=== PATIENT | female | born 1985 | race Caucasian/White ===

== ENCOUNTER 2024-01-27 19:32 | Outpatient (REF) | payer BC, SELFPAY | END 2024-01-27 19:33 | disposition home or self-care (01) | LOC: LAB 19:32 | PROVIDERS: Visit Provider Obstetrics & Gynecology | DX: Z01.419 Encounter for gynecological examination (general) (routine) without abnormal findings (principal) | CPT/HCPCS: 87624; 88175 ==

== ENCOUNTER 2025-01-30 19:06 | Outpatient (REF) | payer BC, SELFPAY ==
--- OUTSIDE RECORDS SUMMARY | 2025-01-30 11:20 | XMS_ITS | Encounter Summary ---
Author Organization [facility] Address [address] [place] [address] Care Team Providers Care Signaling Design Engineer Name Role Phone Jose Diaz MD Primary Care Provider [phone] Reason for Visit * Reason Comments Well Women Visit Encounter Details Date Type Department Care Team ([facility] Contact Info) Description 01/30/2025 11:20 AM EDT Office Visit [facility] OB [address] [place] [address] Nito Hackett, DO [address] [facility] [place] [address] Well woman exam with routine gynecological exam Social History Tobacco Use Types Packs/Day Years Used Date Smoking Tobacco: Never Smokeless Tobacco: Never Alcohol Use Standard Drinks/Week Comments Never 0 (1 standard drink = 0.6 oz pur e alcohol) Comments No Sex and Gender Information Value Date Recorded Sex Assigned at Not on file Legal Sex Female 11:47 PM EDT Gender Identity Not on file Sexual Orientation Not on file Travel History Travel Start Travel End [facility] 01/18/2025 01/22/2025 documented as of this encounter Last Filed Vital Signs Vital Sign Reading Time Taken Comments Blood Pressure 128/86 01/30/2025 11:59 AM EDT Pulse - - Temperature - - Respiratory Rate - - Oxygen Saturation - - Inhaled Oxygen Concentration - - Weight 88.5 kg (195 lb) 01/30/2025 11:59 AM EDT Height - - Body Mass Index 31.47 02/18/2023 8:54 AM EDT documented in this encounter Plan of Treatment Upcoming Encounters Date Type Department Care Team (Late st Contact Info) Description 02/04/2026 9:00 AM EDT Office Visit [facility] [address] [facility] [place] [address] Nito Hackett, [address] [place] [address] Scheduled Orders Name Type Priority Associated Diagnoses Orde r Schedule Pap Smear Pathology and Cytology Routine Well woman exam with routine gynecological exam Ordered: 01/30/2025 HPV DNA probe, amplified Microbiology Routine Well woman exam with routine gynecological exam Ordered: 01/30/2025 documented as of this encounter Visit Diagnoses Diagnosis Well woman exam with routine gynecological exam Routine gynecological examination documented in this encounter Care Teams Signaling Design Engineer Relationship Specialty Start Date End Date Jose Diaz MD PCP - General Family Medicine 12/21/22 documented as of this encounter
--- OUTSIDE RECORDS SUMMARY | 2025-01-30 19:09 | XMS_ITS | Encounter Summary ---
Author Organization [facility] Address [address] [place] [address] Care Team Providers Care Computer Programmer Analyst Name Role Phone Jose Diaz MD Primary Care Provider [phone] Encounter Details Date Type Department Care Team (Latest Contact Info) Description 01/29/2025 Travel Social History Tobacco Use Types Packs/Day Years [...] History Travel Start Travel End [facility] 01/18/2025 01/22/2025 documented as of this encounter Plan of Treatment Upcoming Encounters Date Type Department Care Team (Late st Contact Info) Description 02/04/2026 9:00 AM EDT Office Visit [facility] [address] [facility] [place] [address] Nito Hackett DO [address] [facility] [place] [address] documented as of this encounter Visit Diagnoses Not on filedocumented in this encounter Care Teams Computer Programmer Analyst Relationship Specialty Start Date End Date Jose Diaz MD PCP - General Family Medicine 12/21/22 documented as of this encounter
--- OUTSIDE RECORDS SUMMARY | 2025-01-30 19:09 | XMS_ITS | Encounter Summary ---
Author Organization [facility] Address [address] [place] [address] Care Team Providers Care Deburring And Tooling Machine Operator Name Role Phone Jose Diaz MD Primary Care Provider [phone] Encounter Details Date Type Department Care Team ([facility] Contact Info) Description 12/17/2022 Abstract [facility] [address] [place] [address] aZira Blanca PA [address] [place] [address] [address] [place], [place] [address] Social History Tobacco Use Types Packs/Day Years Used Date Smoking Tobacco: Never Smokeless Tobacco: Never Alcohol Use Standard Drinks/Week Comments Never 0 (1 standard drink = 0.6 oz pur e alcohol) Comments Unknown Sex and Gender Information Value Date Recorded Sex Assigned at Not on file Legal Sex Female 11:47 PM EDT Gender Identity Not on file Sexual Orientation Not on file Travel History Travel Start Travel End [facility] 01/18/2025 01/22/2025 documented as of this encounter Plan of Treatment Upcoming Encounters Date Type Department Care Team ([facility] Contact Info) Description 02/04/2026 9:00 AM EDT Office Visit [facility] OB [address] [place] [address] [place] [address] Nito Hackett DO [address] [place] [address] Dr [place], [place] [address] documented as of this encounter Visit Diagnoses Not on filedocumented in this encounter Care Teams Deburring And Tooling Machine Operator Relationship Specialty Start Date End Date Jose Diaz MD PCP - General Family Medicine 12/21/22 documented as of this encounter
--- OUTSIDE RECORDS SUMMARY | 2025-01-30 19:09 | XMS_ITS | Encounter Summary ---
Author Organization [facility] Address [address] [facility] [place] [address] Care Team Providers Care Tumbling Barrel Painter Name Role Phone Jose Diaz MD Primary Care Provider [phone] Encounter Details Date Type Department Care Team (Late st Contact Info) Description 01/25/2025 Orders Only [facility] [address] [place] [address] Kateryna Tavarez LPN [address] [place] [address] Social History Tobacco Use Types Packs/Day Years [...] file Travel History Travel Start Travel End [facility] 01/18/2025 01/22/2025 documented as of this encounter Plan of Treatment Upcoming Encounters Date Type Department Care Team (Late st Contact Info) Description 02/04/2026 9:00 AM EDT Office Visit [facility] [address] [place] [address] Nito Hackett DO [address] [facility] [place] [address] documented as of this encounter Procedures Procedure Name Priority Date/Time Associated Diagnosis Comments PAP SMEAR Routine 01/27/2024 12:00 AM EDT documented in this encounter Results * Pap Smear (01/27/2024 12:00 AM EDT) Swab Cervical swab / Unknown us Roxann Nurse [facility] CYTOLOGY ORDERABLES Final Result EXTERNAL LAB documented in this encounter Visit Diagnoses Not on filedocumented in this encounter Care Teams Tumbling Barrel Painter Relationship Specialty Start Date End Date Jose Diaz MD PCP - General Family Medicine 12/21/22 documented as of this encounter
--- OUTSIDE RECORDS SUMMARY | 2025-01-30 19:09 | XMS_ITS | Patient Health Record ---
Author Organization [facility] [place] Address [address] [place] [address] Care Team Providers Care Construction Project Manager Name Role Phone Jack Diaz Primary Care Provider Allergies No Known Allergies Reason For Referral No Information Medications Medication SIG (Take, Route, Fr equency, Duration) Notes Start Date End Date Status Doxepin HCl 10 MG 1 capsule at bedtime Orally Once a day for 10 days 07/17/2024 Active Diclofenac Sodium 75 MG 1 tablet as need ed Orally Twice a day for 30 days 07/17/2024 Active Social History Tobacco Use: Social History Observation Description Date Details (start date - stop date) Never Smoker NA - NA Tobacco Control (Standard) Question Answer Notes Tobacco use: Nonsmoker AUDIT-C (Standard) Question Answer Notes Did you have a drink containing alcohol in the p ast year? No Points 0 Interpretation Negative Problems Problem Type SNOMED Code ICD Code Onset Dates Problem Status W/U Status Risk Notes Problem Pain in limb (49099234) Foot pain, left (M79.672) Active confirmed Vital Signs Blood pressure diastolic 96 mm Hg 07/17/2024 Height 66 in 07/17/2024 Blood pressure systolic 134 mm Hg 07/17/2024 Weight 197.4 lbs 07/17/2024 BMI 31.86 kg/m2 07/17/2024 Encounters Encounter Location Date Provider Diagnosis [facility] [address] [place] [address] 07/17/2024 Jack Diaz Foot pain M79.673 ; Foot pain, left M79.672 and Insomnia G47.00 Assessments Encounter Date Diagnosis (ICD Code) Assessment Notes Treatment Notes Treatment Clinical Notes Section Notes 07/17/2024 Foot pain (ICD-10 - M79.673) 07/17/2024 Foot pain, left (ICD-10 - M79.672) 07/17/2024 Insomnia (ICD-10 - G47.00) Plan Of Treatment No Information Insurance Providers Payer Name Payer Address Payer Phone Subscriber Number Group Number Insured Name Patient Relationship to Insured Coverage Start Date Coverage End Date [employer] PPO PLUS LOCAL PLAN [address] [place] [phone] [id number] Sharon Pressley Self - patient is the insured
--- OUTSIDE RECORDS SUMMARY | 2025-01-30 19:09 | XMS_ITS | Clinical Summary ---
Author Organization [facility] Address [address] [place] [address] Care Team Providers Care Personal Secretary Name Role Phone Jose Diaz MD Primary Care Provider [phone] Allergies No known active allergies Medications loratadine (Claritin) 10 MG tablet Take 10 mg by mouth in the morning. Active metFORMIN, OSM, (Fortamet) 500 MG 24 hr tablet Take 500 mg by mouth in the evening. Take with meals. Do not crush, chew, or split. 025 Discontinued phentermine (Adipex-P) 37.5 MG tabletIndications :Encounter for weight management Take 1 tablet (37.5 mg) by mouth in the morning. Take before meals. 30 tablet 03/18/20 23 025 Discontinued metFORMIN XR (Glucophage-XR) 500 MG 24 hr tabletIndications :Persons encountering health services in other specified circumstances TAKE 1 TABLET BY MOUTH WITH evening meal 30 tablet 3 08/30/19 24 025 Discontinued Brimonidine Tartrate 0.33 % gelIndications:Ot her rosacea Apply a pea size amount topically to face QD 30 g 11 01/10/20 24 025 Discontinued Active Problems No known active problems Encounters Date Type Department Care Team Description 01/30/2025 11:20 AM EDT Office Visit [facility] OB [address] [facility] [address] [facility] [place] [address] Nito Hackett, DO Well woman exam with routine gynecological exam 01/30/2025 Bamboo flowsheet [facility] [address] [place] [address] Nito Hackett, 01/29/2025 Travel 01/25/2025 Orders Only [facility] OB [facility] [place] [address] Kateryna Tavarez LPN from Last 3 Months Family History Medical History Relation Name Comments Cancer Maternal Grandfather Cancer Paternal Grandfather Melanoma Neg Hx Relation Name Status Comments Daughter Alive 1 daughter Maternal Grandfather Paternal Grandfather Son Alive 1 son Social History Tobacco Use Types Packs/Day Years Used Date Smoking Tobacco: Never Smokeless Tobacco: Never Tobacco Cessation:Counseling Given: Not Answered Alcohol Use Standard Drinks/Week Comments Never 0 (1 standard drink = 0.6 oz pur e alcohol) Comments No Sex and Gender Information Value Date Recorded Sex Assigned at Not on file Legal Sex Female 11:47 PM EDT Gender Identity Not on file Sexual Orientation Not on file Travel History Travel Start Travel End [facility] 01/18/2025 01/22/2025 Last Filed Vital Signs Vital Sign Reading Time Taken Comments Blood Pressure 128/86 01/30/2025 11:59 AM EDT Pulse - - Temperature - - Respiratory Rate - - Oxygen Saturation - - Inhaled Oxygen Concentration - - Weight 88.5 kg (195 lb) 01/30/2025 11:59 AM EDT Height 167.6 cm (5' 6 ) 02/18/2023 8:54 AM EDT Body Mass Index 31.47 02/18/2023 8:54 AM EDT Plan of Treatment Upcoming Encounters Date Type Department Care Team ([facility] st Contact Info) Description 02/04/2026 9:00 AM EDT Office Visit [facility] [place] [address] Nito Hackett, [address] [place] [address] Insurance [facility] Care Teams Personal Secretary Relationship Specialty Start Date End Date Jose Diaz MD PCP - General Family Medicine 12/21/22
--- OUTSIDE RECORDS SUMMARY | 2025-01-30 19:09 | XMS_ITS | Encounter Summary ---
Author Organization [facility] Address [address] [facility] [place] [address] Care Team Providers Care Blanket Binder Name Role Phone Jose Diaz MD Primary Care Provider [phone] Encounter Details Date Type Department Care Team (Late Contact Info) Description 01/30/2025 Bamboo flowsheet [facility] OB [address] [place] [address] Nito Hackett DO [address] [place] [address] Jaun Ramon [place], [place] [address] Social History Tobacco Use Types Packs/Day Years [...] file Travel History Travel Start Travel End [facility] 01/18/2025 01/22/2025 documented as of this encounter Plan of Treatment Upcoming Encounters Date Type Department Care Team (Late Contact Info) Description 02/04/2026 9:00 AM EDT Office Visit [facility] [address] [facility] [place] [address] Nito Hackett DO [address] [place], [place] [address]Tomasz [place], [place] [address] documented as of this encounter Visit Diagnoses Not on filedocumented in this encounter Care Teams Blanket Binder Relationship Specialty Start Date End Date Jose Diaz MD PCP - General Family Medicine 12/21/22 documented as of this encounter
[2025-02-05 16:08] LABS: Age Gdln ACOG Testing Note (.); IGP, Aptima HPV, rfx 16/18,45 Note (.)
== END 2025-01-30 19:07 | disposition home or self-care (01) ==
LOC: LAB 19:06
PROVIDERS: Visit Provider Obstetrics & Gynecology
DX: Z01.419 Encounter for gynecological examination (general) (routine) without abnormal findings (principal)
CPT/HCPCS: 87624; 88175